=== PATIENT | male | born 1990 | race Caucasian/White ===

== ENCOUNTER 2019-06-25 20:21 | Inpatient (IN) | payer BC ==
[~2019-06-25] VITALS: Ht 185.4 cm; Wt 84.8 kg
--- NOTE | 2019-06-25 20:52 | NUR ---
ER at bedside
--- NOTE | 2019-06-25 20:56 | NUR ---
Orthostatic VS- Laying down- `131/63 Standing-129/75
[2019-06-25] MEDS ORDERED: IV NORMAL SALINE 1000 ML BAG IV ONE (21:00)
[2019-06-25 21:07] LABS: BASOPHILS # (AUTO) 0.1 K/uL (0.0-8.0); BASOPHILS % (AUTO) 1.3 % (0.0-2.0); EOSINOPHILS # (AUTO) 0.1 K/uL (0.0-0.7); EOSINOPHILS % (AUTO) 1.5 % (0.0-7.0); HEMATOCRIT 41.3 % (36.7-47.1); LYMPHOCYTES # (AUTO) 2.1 K/uL (20.0-40.0); LYMPHOCYTES % (AUTO) 30.6 % (20.5-51.5); MEAN CORPUSCULAR HEMOGLOBIN 31.7 uug (23.8-33.4); MEAN CORPUSCULAR HGB CONC 34 g/dL (32.5-36.3); MEAN CORPUSCULAR VOLUME 93.5 fL (73.0-96.2); MONOCYTES # (AUTO) 0.5 K/uL (2.0-10.0); MONOCYTES % (AUTO) 7.2 % (0.0-11.0); NEUTROPHILS % (AUTO) 59.4 % (38.5-71.5); PLATELET COUNT (AUTO) 195 K/uL (152-348); RED BLOOD CELL COUNT(AUTO) 4.42 MIL/uL (4.06-5.63); WHITE BLOOD COUNT (AUTO) 6.7 K/uL (3.6-10.2)
--- NOTE | 2019-06-25 21:13 | NUR ---
ER at bedside
[2019-06-25] MEDS ORDERED: LORAZEPAM 2 MG/1 ML VIAL ONE (21:19)
[2019-06-25 21:22] LABS: BILIRUBIN,DIRECT 0.2 mg/dL (0.0-0.2); BILIRUBIN,TOTAL 1.3 mg/dL (0.2-1.0); POTASSIUM 3.3 mmol/L (3.5-5.1); TOTAL PROTEIN, SERUM 7.4 g/dL (6.4-8.2)
[2019-06-25] MEDS ORDERED: LORAZEPAM 2 MG/1 ML VIAL IV ONE (21:30)
[2019-06-25] MEDS ORDERED: POTASSIUM BICARBONATE/CIT AC 25 MEQ TABLET.EFF PO ONE (21:30)
[2019-06-25] MEDS ORDERED: POTASSIUM BICARBONATE/CIT AC 25 MEQ TABLET.EFF ONE (21:31)
--- NOTE | 2019-06-25 21:57 | NUR ---
REPORT GIVEN TO YAZAN SUÁREZ (TELE)
[2019-06-25] MEDS ORDERED: ASPIRIN 325 MG TABLET PO ONE (22:00)
[2019-06-25] MEDS ORDERED: ASPIRIN 325 MG TABLET ONE (22:00)
[2019-06-25 22:20] VITALS: BP 110/60
[2019-06-25] MEDS ORDERED: ONDANSETRON 4 MG/2 ML VIAL IV PRN (22:30)
[2019-06-25] MEDS ORDERED: MAGNESIUM HYDROXIDE 30 ML LIQUID UDC PO PRN (22:30)
[2019-06-25] MEDS ORDERED: HYDROCODONE/APAP 5-325MG TABLET PO PRN (22:30)
[2019-06-25] MEDS ORDERED: ACETAMINOPHEN 325 MG TABLET PO PRN (22:30)
[2019-06-25 23:51] VITALS: BP 107/52
[2019-06-26 04:06] VITALS: BP 103/60
[2019-06-26 06:45] LABS: BASOPHILS # (AUTO) 0.1 K/uL (0.0-8.0); BASOPHILS % (AUTO) 1.4 % (0.0-2.0); EOSINOPHILS # (AUTO) 0.1 K/uL (0.0-0.7); EOSINOPHILS % (AUTO) 2.5 % (0.0-7.0); HEMATOCRIT 38.2 % (36.7-47.1); HEMOGLOBIN 13.1 g/dL (12.5-16.3); LYMPHOCYTES # (AUTO) 1.6 K/uL (20.0-40.0); LYMPHOCYTES % (AUTO) 34.8 % (20.5-51.5); MEAN CORPUSCULAR HEMOGLOBIN 31.7 uug (23.8-33.4); MEAN CORPUSCULAR HGB CONC 34 g/dL (32.5-36.3); MEAN CORPUSCULAR VOLUME 92.8 fL (73.0-96.2); MONOCYTES # (AUTO) 0.5 K/uL (2.0-10.0); MONOCYTES % (AUTO) 10.7 % (0.0-11.0); NEUTROPHILS # (AUTO) 2.3 K/uL (1.8-8.9); NEUTROPHILS % (AUTO) 50.6 % (38.5-71.5); PLATELET COUNT (AUTO) 187 K/uL (152-348); RED BLOOD CELL COUNT(AUTO) 4.12 MIL/uL (4.06-5.63); WHITE BLOOD COUNT (AUTO) 4.5 K/uL (3.6-10.2)
[2019-06-26 06:59] LABS: CREATININE 0.9 mg/dL (0.6-1.3); MAGNESIUM 2.3 mg/dL (1.8-2.4); PHOSPHOROUS 4.8 mg/dL (2.5-4.9); POTASSIUM 3.9 mmol/L (3.5-5.1)
--- NOTE | 2019-06-26 07:00 | NUR ---
ADMITTED TO ROOM 520; DENIES ANY PAIN, DENIES ANY ANXIETY; MOTHER AT BEDSIDE; SINUS DARIEL ON TELE; VSS; PLAN OF CARE INITIATED; CONTINUE TO MONITOR.
[2019-06-26 07:19] LABS: THYROID STIMULATING HORMONE 4.313 mIU/mL (0.358-3.740)
[2019-06-26 11:50] VITALS: BP 122/70
--- NOTE | 2019-06-26 14:15 | NUR ---
Patient AAOx4. Denies pain/discomfort. Discharge orders back to home in place. Seen and cleared by cardio. Instructed to follow up outpatient and advised to not exercise until furhter instruction. No s/s of acute distress. Vital signs are stable. Exit care and education provided. ID and IV removed.
== END 2019-06-26 14:15 | disposition home or self-care (01) | DRG 641 ==
LOC: ER 20:21 → TELE3 22:04
DX: E86.0 Dehydration (principal); R94.31 Abnormal electrocardiogram [ECG] [EKG]; I51.7 Cardiomegaly; E87.6 Hypokalemia
CPT/HCPCS: 36415; 70030-TC; 71045; 83735; 84100; 84443; 85025; 93005; 93307; A4663; G0378; J2060; J7030